=== PATIENT | female | born 1985 | race Two or more races ===

== ENCOUNTER 2024-07-04 11:16 | Emergency (ER) | payer OTHER ==
[~2024-07-04] VITALS: Ht 154.9 cm; Wt 89.8 kg
== END 2024-07-04 14:34 | disposition home or self-care (01) ==
LOC: ER 11:16
DX: F41.8 Other specified anxiety disorders (principal); I10 Essential (primary) hypertension; Z91.013 Allergy to seafood; Z88.8 Allergy status to other drugs, medicaments and biological substances